=== PATIENT | female | born 1995 | race Caucasian/White ===

== ENCOUNTER 2020-01-05 11:00 | Outpatient (RCR) | payer OTHER, SELFPAY | END 2020-01-12 08:42 | disposition other institution (70) | LOC: HO.PTWFD 11:00 | PROVIDERS: Visit Provider Physician Assistant Surgical | DX: Z47.89 Encounter for other orthopedic aftercare (principal); Z98.890 Other specified postprocedural states | CPT/HCPCS: 97110; 97112; 97140; 97530 ==